=== PATIENT | female | born 1995 | race African-American/Black ===

== ENCOUNTER 2022-03-20 09:58 | Emergency (ER) | payer MEDICAID, SELFPAY ==
--- NOTE | ~2022-03-20 | US_ITS ---
EXAMINATION: US_ABDRLQ_US DATE: 03/20/2022 12:56 INDICATION: Right lower quadrant abdominal pain. TECHNIQUE: Multiple ultrasound images of the abdomen were obtained. COMPARISON: None. FINDINGS: The appendix is not identified. Partially visualized are uterine fibroids. There is no ascites. IMPRESSION: 1. Appendix not identified. 2. Partially visualized uterine fibroids. Reviewed, dictated and finalized at location A. ASSOCIATE
[2022-03-20 10:10] VITALS: BP 132/79; PULSE 77; RESP 16; TEMP 36.9; O2SAT 96
[2022-03-20 10:55] LABS: Appearance Urine Clear (Clear); Bilirubin Urine 1+ (Negative); Blood Urine Negative (Negative); Color Urine Yellow (Yellow); Glucose Urine UA Negative (Negative); Ketones Urine 4+ mg/dL (Negative); Leukocyte Esterase Ur Negative LEU/UL (Negative); Nitrate Urine Negative (Negative); Protein Urine Trace mg/dL (Negative)
[2022-03-20 11:11] LABS: Bacteria Urine Trace /hpf; Mucus Urine Moderate /lpf; RBC Urine 0-2 /hpf (0-2); Squamous Epithelial Cell Urine Moderate /hpf (Few); WBC Urine 0-3 /hpf
[2022-03-20 11:15] LABS: Add Urine Microscopic? YES
[2022-03-20] MEDS: SODIUM CHLORIDE 0.9% IV 1,000 ML 999 ML IV CONT (11:15)
[2022-03-20 11:21] LABS: Basophils Absolute Auto 0.1 K/mm3 (0.0-0.1); Basophils Percent Auto 0.5 % (0.2-1.2); Eosinophils Percent Auto 0.2 % (0-4.4); Hematocrit 45.6 % (37.0-47.0); Hemoglobin 14.4 g/dL (12.0-15.0); Immature Granulocyte Absolute 0.07 K/mm3 (0.00-0.031); Immature Granulocyte Percent A 0.5 % (0-0.5); Lymphocytes Absolute Auto 2.95 K/mm3 (0.9-3.2); Lymphocytes Percent Auto 22.5 % (18.3-44.2); Mean Corpuscular HGB Conc 31.6 g/dl (32-36); Mean Corpuscular Hemoglobin 27.6 pg (26-34); Mean Corpuscular Volume 87.5 fl (80-100); Mean Platelet Volume 9.5 fl (7.4-10.4); Monocytes Absolute Auto 0.8 K/mm3 (0.1-0.6); Monocytes Percent Auto 6.3 % (2.6-8.5); Neutrophils Absolute Auto 9.2 K/mm3 (1.3-6.7); Platelet Count Result 352 k/mm3 (150-375); Red Blood Count 5.21 M/mm3 (4.2-5.4); Red Cell Distribution Width 13.2 % (11.5-14.5); White Blood Count 13.1 K/mm3 (4.5-10.0)
[2022-03-20 11:36] LABS: Alanine Aminotransferase 18 U/L (6-35); Albumin Level 4.8 g/dL (3.5-5.1); Alkaline Phosphatase 81 U/L (38-126); Anion Gap 15 mmol/L (8-16); Aspartate Amino Transferase 24 U/L (14-36); Bilirubin,Total 0.6 mg/dL (0.2-1.3); Blood Urea Nitrogen 5 mg/dL (7-17); Calcium 8.9 mg/dL (8.4-10.2); Carbon Dioxide 20 mmol/L (22-30); Chloride 102 mmol/L (98-107); Estimated CRCL calculation 154 ml/min; Estimated Glomerular Filt Rate > 60; Glucose 91 mg/dL (65-110); Lipase 51 U/L (23-300); Sodium 137 mmol/L (137-145)
--- NOTE | 2022-03-20 12:11 | ED.ABDPAIN ---
HPI - Abdominal Pain General Chief Complaint: Abdominal Pain Stated Complaint: pelvic pain with back pain - hx fibroid tumor Time Seen by Provider: 03/20/22 10:13 History of Present Illness HPI narrative: 27-year-old female presents emergency room with a history of esophageal tear sudden onset of nausea vomiting that began last night. Patient states 2 weeks ago she was seen at her [facility], Dr. Renteria, for right lower quadrant pain. Ultrasound was obtained patient was found to have a uterine fibroid. Patient states last night she began experiencing multiple episodes of nonbilious nonbloody vomiting. Unknown last menstrual period. Related Data Home Medications Medication Instructions Recorded Confirmed No Home Medications 03/20/22 03/20/22 Allergies Allergy/AdvReac Type Severity Reaction Status Date / Time No Known Allergies Allergy Verified 03/20/22 10:21 Review of Systems Review of Systems: CONSTITUTIONAL: Denies fever, chills, or sweats. EYES: Denies visual changes, redness, or discharge. ENT: Denies rhinorrhea, congestion, sore throat, or otalgia. CARDIOVASCULAR: Denies chest pain, palpitations, or edema. RESPIRATORY: Denies cough or dyspnea. GASTROINTESTINAL: Reports right lower quadrant pain, nausea, vomiting GENITOURINARY: Denies dysuria or hematuria. SKIN: Denies rash or itching. MUSCULOSKELETAL: Denies back pain, joint pain, or myalgia. NEUROLOGIC: Denies headache, numbness, dizziness, or weakness. PSYCHIATRIC: Denies anxiety or depression. Exam Narrative: GENERAL: Well-appearing, well-nourished, no physical limitations, and in no acute distress. HEAD: Normocephalic, atraumatic. EYES: Conjunctivae normal, PERRLA and EOMI. CHEST: Clear to auscultation. No respiratory distress. No wheezes rales or rhonchi. HEART: Regular rate and rhythm. No murmur heard. Normal peripheral pulses. ABDOMEN: Soft, right lower quadrant tenderness, nondistended, normal active bowel sounds. Negative psoas, negative obturator, negative heel strike BACK: No CVA tenderness; No cervical/thoracic/lumbar tenderness, step-offs, bony abnormality; FROM EXTREMITIES: Normal range of motion. No edema. No clubbing or cyanosis SKIN: Warm, dry, no rash. No noted wounds NEURO: No focal deficits. Alert and oriented x3. MAEW. CN's II-XI intact bilaterally, normal gait PSYCH: Cooperative. Normal mood and affect. Course Vital Signs Vital signs: Vital Signs Temperature 36.9 C 03/20/22 10:10 Pulse Rate 77 03/20/22 10:10 Respiratory Rate 16 03/20/22 10:10 Blood Pressure 132/79 03/20/22 10:10 Pulse Oximetry 96 03/20/22 10:10 Oxygen Delivery Room Air 03/20/22 10:10 Temperature 36.9 C 03/20/22 10:10 Pulse Rate 77 03/20/22 10:10 Respiratory Rate 16 03/20/22 10:10 Blood Pressure 132/79 03/20/22 10:10 Pulse Oximetry 96 03/20/22 10:10 Oxygen Delivery Room Air 03/20/22 10:10 MDM - Abdominal Pain Lab Data Result diagrams: 03/20/22 11:15 03/20/22 11:15 Labs: Lab Results 03/20/22 03/20/22 03/20/22 Range/Units 10:48 11:15 11:15 WBC 13.1 H (4.5-10.0) K/mm3 RBC 5.21 (4.2-5.4) M/mm3 Hgb 14.4 (12.0-15.0) g/dL Hct 45.6 (37.0-47.0) % MCV 87.5 (80-100) fl MCH 27.6 (26-34) pg MCHC 31.6 L (32-36) g/dl RDW 13.2 (11.5-14.5) % Plt Count 352 (150-375) k/mm3 MPV 9.5 (7.4-10.4) fl Immature Gran % (Auto) 0.5 (0-0.5) % Neut % (Auto) 70.0 (45.5-73.1) % Lymph % (Auto) 22.5 (18.3-44.2) % [place] % (Auto) 6.3 (2.6-8.5) % Eos % (Auto) 0.2 (0-4.4) % Baso % (Auto) 0.5 (0.2-1.2) % Lymph # (Auto) 2.95 (0.9-3.2) K/mm3 [place] # (Auto) 0.8 H (0.1-0.6) K/mm3 Eos # (Auto) 0.0 (0-0.3) K/mm3 Baso # (Auto) 0.1 (0.0-0.1) K/mm3 Abs Immat Gran (auto) 0.07 H (0.00-0.031) K/mm3 Absolute Neuts (auto) 9.2 H (1.3-6.7) K/mm3 Absolute Nucleated RBC 0.0 (0.0-0.012) K/mm3 Nucleated RBC % 0.0 (0.0-0.2
[2022-03-20] MEDS: diphenhydrAMINE HCl INJ 50 MG/ML VIAL 25 MG IV PUSH (13:43)
[2022-03-20] MEDS: METOCLOPRAMIDE HCL INJ 10 MG/2 ML VIAL IV PUSH (13:43)
[2022-03-20 14:41] VITALS: BP 132/79; PULSE 76; RESP 18; O2SAT 98
== END 2022-03-20 14:57 | disposition home or self-care (01) ==
PROVIDERS: Emergency Provider Nurse Practitioner Family
DX: O21.0 Mild hyperemesis gravidarum (principal); Z3A.00 Weeks of gestation of pregnancy not specified
CPT/HCPCS: 36415; 76705; 80053; 81001; 83690; 84702; 85025; 96361; 96374; 96375; 99284; J1200; J2765; J7030

== ENCOUNTER 2022-03-21 10:37 | Outpatient (CLI) | payer MEDICAID, SELFPAY | END 2022-03-21 10:38 | disposition home or self-care (01) | PROVIDERS: Visit Provider Obstetrics & Gynecology | DX: N91.2 Amenorrhea, unspecified (principal); Z36.89 Encounter for other specified antenatal screening; O36.0130 Maternal care for anti-D [Rh] antibodies, third trimester, not applicable or unspecified | CPT/HCPCS: 36415; 84702; 85461; 86850; 86900; 86901 ==

== ENCOUNTER 2022-03-28 08:11 | Emergency (ER) | payer MEDICAID, SELFPAY ==
[2022-03-28 08:32] VITALS: BP 147/89; PULSE 90; RESP 19; TEMP 37.2; O2SAT 99
--- NOTE | 2022-03-28 08:40 | ED.NAVMDI ---
HPI - Nausea/Vomiting/Diarrhea General Chief complaint: Nausea/Vomiting/Diarrhea Stated complaint: vomiting Time Seen by Provider: 03/28/22 08:39 Source: patient Mode of arrival: ambulatory Limitations: no limitations History of Present Illness HPI Narrative: 27 years old -[place] female 1 para 0 0, currently is 8 weeks been having nausea and frequent vomiting since the beginning of her . She denies any fever, chills, nausea, vomiting. Related Data Home Medications Medication Instructions Recorded Confirmed No Home Medications 03/20/22 03/20/22 Allergies Allergy/AdvReac Type Severity Reaction Status Date / Time No Known Allergies Allergy Verified 03/28/22 08:32 Review of Systems Review of Systems: All systems reviewed & are unremarkable except as noted in HPI and below Exam Narrative: General appearance: Well-developed, well-nourished Skin: Normal color Head: Normocephalic, nontraumatic Eyes: Clear conjunctiva ENT: Oropharynx normal, ears normal, nose normal Neck: Supple, nontender Chest and respiratory: Airway patent, no respiratory distress, no accessory muscle use Heart: Regular rate/rhythm Abdomen: Soft, nontender, no organomegaly, quiet bowel sounds Vascular: Normal peripheral pulses, normal capillary refill. Musculoskeletal: Normal range of motion, nontender back Neurologic: Alert and oriented ?3, ACCOUNT EXECUTIVE is normal as tested, no gross motor deficit Course Vital Signs Vital signs: Vital Signs Temperature 37.2 C 03/28/22 08:32 Pulse Rate 90 03/28/22 08:32 Respiratory Rate 19 03/28/22 08:32 Blood Pressure 147/89 H 03/28/22 08:32 Pulse Oximetry 99 03/28/22 08:32 Temperature 37.2 C 03/28/22 08:32 Pulse Rate 90 03/28/22 08:32 Respiratory Rate 19 03/28/22 08:32 Blood Pressure 147/89 H 03/28/22 08:32 Pulse Oximetry 99 03/28/22 08:32 MDM - Nausea/Vomiting/Diarrhea Differential Diagnosis Differential diagnosis: Likely dehydration and other (Hyperemesis gravidarum, urinary tract infection) Lab Data Result diagrams: 03/28/22 08:39 03/28/22 09:00 Labs: Lab Results 03/28/22 03/28/22 03/28/22 Range/Units 08:39 09:00 09:10 WBC 13.9 H (4.5-10.0) K/mm3 RBC 5.21 (4.2-5.4) M/mm3 Hgb 14.6 (12.0-15.0) g/dL Hct 45.7 (37.0-47.0) % MCV 87.7 (80-100) fl MCH 28.0 (26-34) pg MCHC 31.9 L (32-36) g/dl RDW 13.0 (11.5-14.5) % Plt Count 398 H (150-375) k/mm3 MPV 9.8 (7.4-10.4) fl Immature Gran % (Auto) 0.5 (0-0.5) % Neut % (Auto) 79.3 H (45.5-73.1) % Lymph % (Auto) 14.3 L (18.3-44.2) % [place] % (Auto) 5.4 (2.6-8.5) % Eos % (Auto) 0.0 (0-4.4) % Baso % (Auto) 0.5 (0.2-1.2) % Lymph # (Auto) 1.99 (0.9-3.2) K/mm3 [place] # (Auto) 0.8 H (0.1-0.6) K/mm3 Eos # (Auto) 0.0 (0-0.3) K/mm3 Baso # (Auto) 0.1 (0.0-0.1) K/mm3 Abs Immat Gran (auto) 0.07 H (0.00-0.031) K/mm3 Absolute Neuts (auto) 11.0 H (1.3-6.7) K/mm3 Absolute Nucleated RBC 0.0 (0.0-0.012) K/mm3 Nucleated RBC % 0.0 (0.0-0.2) % Sodium 140 (137-145) mmol/L Potassium 3.1 L (3.4-5.0) mmol/L Chloride 100 (98-107) mmol/L Carbon Dioxide 24 (22-30) mmol/L Anion Gap 16 (8-16) mmol/L BUN 5 L (7-17) mg/dL Creatinine 0.50 L (0.7-1.0) mg/dL Estim Creat Clear Calc 183 ml/min Estimated GFR > 60 (59 - ) Glucose 109 (65-110) mg/dL Calcium 9.3 (8.4-10.2) mg/dL Total Bilirubin 0.4 (0.2-1.3) mg/dL AST 23 (14-36) U/L ALT 22 (6-35) U/L Alkaline Phosphatase 88 (38-126) U/L Total Protein 9.0 H (6.3-8.2) g/
[2022-03-28 09:00] LABS: Basophils Absolute Auto 0.1 K/mm3 (0.0-0.1); Basophils Percent Auto 0.5 % (0.2-1.2); Hematocrit 45.7 % (37.0-47.0); Hemoglobin 14.6 g/dL (12.0-15.0); Immature Granulocyte Absolute 0.07 K/mm3 (0.00-0.031); Immature Granulocyte Percent A 0.5 % (0-0.5); Lymphocytes Absolute Auto 1.99 K/mm3 (0.9-3.2); Lymphocytes Percent Auto 14.3 % (18.3-44.2); Mean Corpuscular HGB Conc 31.9 g/dl (32-36); Mean Corpuscular Volume 87.7 fl (80-100); Mean Platelet Volume 9.8 fl (7.4-10.4); Monocytes Absolute Auto 0.8 K/mm3 (0.1-0.6); Monocytes Percent Auto 5.4 % (2.6-8.5); Neutrophils Percent Auto 79.3 % (45.5-73.1); Platelet Count Result 398 k/mm3 (150-375); Red Blood Count 5.21 M/mm3 (4.2-5.4); White Blood Count 13.9 K/mm3 (4.5-10.0)
[2022-03-28] MEDS: ONDANSETRON INJ 4 MG/2 ML VIAL 8 MG IV PUSH (09:13)
[2022-03-28] MEDS: SODIUM CHLORIDE 0.9% IV 1,000 ML 999 ML IV CONT ×2 (09:13)
[2022-03-28 09:16] LABS: Alanine Aminotransferase 22 U/L (6-35); Albumin Level 4.6 g/dL (3.5-5.1); Alkaline Phosphatase 88 U/L (38-126); Anion Gap 16 mmol/L (8-16); Aspartate Amino Transferase 23 U/L (14-36); Bilirubin,Total 0.4 mg/dL (0.2-1.3); Blood Urea Nitrogen 5 mg/dL (7-17); Calcium 9.3 mg/dL (8.4-10.2); Carbon Dioxide 24 mmol/L (22-30); Chloride 100 mmol/L (98-107); Estimated CRCL calculation 183 ml/min; Estimated Glomerular Filt Rate > 60; Glucose 109 mg/dL (65-110); Lipase 60 U/L (23-300); Potassium 3.1 mmol/L (3.4-5.0); Sodium 140 mmol/L (137-145)
[2022-03-28 09:19] LABS: Appearance Urine Slightly Cloudy (Clear); Bilirubin Urine 2+ (Negative); Blood Urine Negative (Negative); Color Urine Yellow (Yellow); Glucose Urine UA Negative (Negative); Ketones Urine 4+ mg/dL (Negative); Leukocyte Esterase Ur Negative LEU/UL (Negative); Nitrate Urine Negative (Negative); Protein Urine 2+ mg/dL (Negative); Specific Grav Ur 1.025 (1.001-1.035)
[2022-03-28 09:25] LABS: Bacteria Urine 1+ /hpf; Mucus Urine Heavy /lpf; RBC Urine 0-2 /hpf (0-2); Squamous Epithelial Cell Urine Moderate /hpf (Few); WBC Urine 0-3 /hpf
[2022-03-28 09:29] LABS: Add Urine Microscopic? YES
[2022-03-28] MEDS: BELLADONNA ALK/PHENOB ELIX 10 ML, MAG HYDROX/ALUMINUM HYD/SIMETH 30 ML, LIDOCAINE HCL 2... PO (10:36)
[2022-03-28 10:37] VITALS: BP 118/57; PULSE 85; RESP 16; O2SAT 100
== END 2022-03-28 10:45 | disposition home or self-care (01) ==
PROVIDERS: Emergency Provider Emergency Medicine
DX: O21.1 Hyperemesis gravidarum with metabolic disturbance (principal); Z3A.08 8 weeks gestation of pregnancy
CPT/HCPCS: 36415; 80053; 81001; 81025; 83690; 85025; 96361; 96374; 99284; A9270; J2405; J7030

== ENCOUNTER 2022-10-30 10:12 | Observation (INO) | payer MEDICAID, SELFPAY ==
[2022-10-30 10:25] VITALS: BP 129/67; PULSE 80
[2022-10-30 10:32] VITALS: BP 97/78; PULSE 85; RESP 18; TEMP 36.1
[2022-10-30 11:40] VITALS: BMI 48.6
--- NOTE | 2022-10-30 11:41 | OBADM ---
This patient, Juan Chun, admitted to the OB room 117 for observation for extended monitoring. Patient/family oriented to hospital policies and general routines including ID bracelet, bed and alarms, visiting hours, pain management, procedures, bathroom and other care routines, personal items, smoking policy, room service/diet, and visiting hours. Patient/Family are encouraged to report perceived risks to care and to ask questions if they do not understand what they are told or what they should do.
--- NOTE | 2022-10-30 12:54 | PC.NURSE ---
Dr. Lay informed of reactive FHT's with 1 possible 10-15 sec variable down to 120- FHR signal was not connected.
--- NOTE | 2022-10-30 12:55 | PC.NURSE ---
OK to discharge to home.
--- NOTE | 2022-11-09 06:53 | PM.OBTRLD ---
OB - Triage/Final Diagnosis Visit Information Comments/Additional reasons for admission: I have assessed the risk for this patient, Juan Chun, and determined that she would benefit from observation care. Final Diagnosis (1) Non-reassuring electronic monitoring tracing: Code(s): O36.8390 - Maternal care for abnormalities of the heart rate or rhythm, unspecified trimester, not applicable or unspecified Status: Acute
== END 2022-10-30 13:14 | disposition home or self-care (01) ==
PROVIDERS: Admitting Provider Obstetrics & Gynecology; Visit Provider Obstetrics & Gynecology
DX: O36.8330 Maternal care for abnormalities of the fetal heart rate or rhythm, third trimester, not applicable or unspecified (principal); Z3A.39 39 weeks gestation of pregnancy
CPT/HCPCS: G0378; G0379

== ENCOUNTER 2022-11-02 00:23 | Inpatient (IN) | payer MEDICAID, SELFPAY ==
[2022-11-02] VITALS (134 sets, daily range): BP systolic 69–161; BP diastolic 41–119; PULSE 64–160; RESP 15–18; TEMP 36.3–37.1; O2SAT 82–100; BMI 49.1
[2022-11-02 01:07] LABS: Hematocrit 32.3 % (37.0-47.0); Mean Corpuscular Hemoglobin 24.5 pg (26-34); Mean Corpuscular Volume 79.2 fl (80-100); Red Blood Count 4.08 M/mm3 (4.2-5.4)
[2022-11-02] MEDS: LACTATED RINGERS 1,000 ML 125 ML IV CONT ×3 (01:07→13:28)
[2022-11-02 01:08] LABS: Basophils Percent Auto 0.3 % (0.2-1.2); Eosinophils Absolute Auto 0.1 K/mm3 (0-0.3); Eosinophils Percent Auto 0.5 % (0-4.4); Immature Granulocyte Percent A 0.9 % (0-0.5); Lymphocytes Absolute Auto 2.44 K/mm3 (0.9-3.2); Lymphocytes Percent Auto 22.2 % (18.3-44.2); Mean Platelet Volume 9.7 fl (7.4-10.4); Monocytes Absolute Auto 0.9 K/mm3 (0.1-0.6); Monocytes Percent Auto 8.4 % (2.6-8.5); Neutrophils Absolute Auto 7.5 K/mm3 (1.3-6.7); Neutrophils Percent Auto 67.7 % (45.5-73.1); Platelet Count Result 343 k/mm3 (150-375)
[2022-11-02] MEDS: AMPICILLIN 2 GM/NS 100 ML 2 GM/100 ML BAG IVPB (01:08)
--- NOTE | 2022-11-02 03:27 | WPDANESEPPF ---
Anes - Initial Pre Proc Eval Procedure: Labor epidural Date/Time: 11/02/22 03:27 Surgeon: Kimberly Lay MD Pre Op Diagnosis: Labor pain Pre Op Diagnosis: SROM Patient Data Age: 27 Gender: F Height: 1.65 m Weight: 134 kg Last Vital Signs Pulse 77 11/02/22 03:02 BP 120/41 L 11/02/22 03:02 Allergies Allergy/AdvReac Type Severity Reaction Status Date / Time No Known Allergies Allergy Verified 03/28/22 08:32 Home Medications Medication Instructions Recorded Confirmed Type ferrous sulfate 325 mg (65 mg 325 mg PO DAILY 10/11/22 10/30/22 History iron) tablet prenat.vits,andre,btl-macm-uivsy 1 tablet PO DAILY 10/11/22 10/30/22 History Laboratory Tests 11/02/22 01:02 WBC 11.0 H K/mm3 (4.5-10.0) RBC 4.08 L M/mm3 (4.2-5.4) Hgb 10.0 L D g/dL (12.0-15.0) Hct 32.3 L % (37.0-47.0) MCV 79.2 L fl (80-100) MCH 24.5 L pg (26-34) MCHC 31.0 L g/dl (32-36) RDW 16.0 H % (11.5-14.5) Plt Count 343 k/mm3 (150-375) MPV 9.7 fl (7.4-10.4) Immature Gran % (Auto) 0.9 H % (0-0.5) Neut % (Auto) 67.7 % (45.5-73.1) Lymph % (Auto) 22.2 % (18.3-44.2) [place] % (Auto) 8.4 % (2.6-8.5) Eos % (Auto) 0.5 % (0-4.4) Baso % (Auto) 0.3 % (0.2-1.2) Lymph # (Auto) 2.44 K/mm3 (0.9-3.2) [place] # (Auto) 0.9 H K/mm3 (0.1-0.6) Eos # (Auto) 0.1 K/mm3 (0-0.3) Baso # (Auto) 0.0 K/mm3 (0.0-0.1) Abs Immat Gran (auto) 0.10 H K/mm3 (0.00-0.031) Absolute Neuts (auto) 7.5 H K/mm3 (1.3-6.7) Absolute Nucleated RBC 0.0 K/mm3 (0.0-0.012) Nucleated RBC % 0.0 % (0.0-0.2) RPR Pending Blood Type B Positive Antibody Screen Negative Patient hx anesthesia problems: none Family hx anesthesia problems: none Results Review: All pre-operative results and documents have been reviewed as part of the pre-operative evaluation. PMFSH Family History Family History Mother Hypertension Social History Social History Substance use: never Spiritual care concerns: No Anes - Eval Final PreProcedure Day of Procedure 11/02/22 03:27 Patient weight: morbidly obese ASA classification: III Anesthesia type and monitoring: regional epidural and standard monitoring Results Review: All pre-operative results and documents have been reviewed as part of the pre-operative evaluation. Informed Consent: The patient's anesthetic plan and its attendant risks and benefits were discussed with the patient/family/POA. Questions were solicited and answers provided to the satisfaction of the patient/family/POA.
[2022-11-02] MEDS: AMPICILLIN 1 GM/NS 50 ML 1 GM/50 ML BAG IVPB ×3 (05:25→14:34)
--- NOTE | 2022-11-02 05:31 | WPDOBADMIT ---
Obstetrics - Admit Note Admission Note: record reviewed. No pertinent additions to the history and/or any subsequent changes in the physical findings that are not consistent with the expected course of the were found. Pt presented after SROM at home. GBS +, anticipate vaginal delivery Additions to the history and/or subsequent changes in the physical findings follow. None.
--- NOTE | 2022-11-02 06:48 | LDADM ---
This patient, Juan Chun, was admitted to Labor/Delivery/Recovery 104 on 11/02/22 at 00:23. Plans for labor, pain management and were discussed with patient. Patient/family oriented to hospital policies and general routines including ID bracelet, bed and alarms, visiting hours, pain management, procedures, bathroom and other care routines, personal items, smoking policy, room service/diet and guest tray routines, infant security routines, and visiting hours. Patient/Family are encouraged to report perceived risks to care and to ask questions if they do not understand what they are told or what they should do. See OBIX for further documentation.
[2022-11-02] MEDS: OXYTOCIN 30 UNITS/NS 500 ML 30 UNITS/500 ML BAG 6 UNITS IV CONT (09:25)
[2022-11-02] MEDS: fentaNYL CITRATE INJ (*CRX) 100 MCG/2 ML VIAL 50 MCG IV PUSH (12:02)
--- NOTE | 2022-11-02 17:13 | PM.OBPRVD ---
OB - Delivery Note Procedure Delivery date: 11/02/22 Procedure: Induction method: None Delivery augmentation: Pitocin Delivery monitor: Internal FHT and Internal Uterine Route of delivery: Laceration Description: Superficial Specimen: Yes Quantitative Blood Loss (ml): 80 Anesthesia type: Epidural Disposition: Floor [place] Baby Date of : 11/02/22 Time of : 16:53 Weeks of gestation at delivery: 38 Infant gender: Female Weight (pounds): 7 Weight (ounces): 12 presentation: vertex position: Left Occiput Anterior Placenta delivery description: Manual Removal and Uterine Exploration Cord Vessel Description: 3 Vessels, Clamped/Cut and Delayed Cord Clamping score one minute: 8 score five minutes: 8 Narrative: mother and baby skin to skin in stable condition
[2022-11-02] MEDS: OXYTOCIN 30 UNITS/NS 500 ML 30 UNITS/500 ML BAG 125 UNITS IV CONT (17:50)
[2022-11-02] MEDS: WITCH HAZEL 40 PADS 1 PAD TOPICAL (19:19)
[2022-11-02] MEDS: BENZOCAINE 20% AER SPR (*SP) 56 GM CAN 1 SPRAY TOPICAL (19:19)
--- NOTE | 2022-11-02 19:52 | PC.NURSE ---
Patient transferred to post room #292 via wheelchair at 1952. Family present. Oriented to unit, room, information board, rooming in, admission packet and security measures. Patient verbalizes understanding.
[2022-11-03 00:30] VITALS: BP 110/71; PULSE 79; RESP 18; TEMP 36.7; O2SAT 99
[2022-11-03 03:41] LABS: Hemoglobin 9.1 g/dL (12.0-15.0)
[2022-11-03] MEDS: IBUPROFEN 600 MG TABLET PO ×3 (03:41→17:11)
--- NOTE | 2022-11-03 07:00 | PC.NURSE ---
PT introductions made and plan of care discussed per post , pain management, bottle feeding, daily care activities. PT and FOB both recipients of such instructions and no barriers to learning identified at this time. PT received such instructions per one to one discussion, mom baby care guide and demonstrations this shift. PT verbalized understanding of such care.
--- NOTE | 2022-11-03 08:05 | PM.OBPNVD ---
OB - PN: Subj Subjective Date/time seen: 11/03/22 08:05 s/p vaginal delivery day 1 Bp's labile, check labs, denies ivory, visual changes, epigastric pain doing well baby doing well OB - PN: Obj Data Labs 11/03/22 03:25 Labs: Laboratory Results - last 24 hr 11/03/22 03:25 Hgb 9.1 L Hct 29.0 L OB - PN A/P Plan day: 1 Plan: routine care Comments: continue routine bp checks check labs Time Spent With Patient Time: Total time spent is greater than 50% in coordination of care (as documented) at patient's floor/unit and/or counseling patient: Review of Systems Review of Systems: All systems reviewed & are unremarkable except as noted in HPI and below Exam Const: General: cooperative, healthy appearing and comfortable Chest: Chest palpation & inspection: normal inspection of the chest Resp: Effort & Inspection: normal respiratory effort and able to speak in complete sentences Cardio: Rate: regular rate Rhythm: regular rhythm GI: Other: soft : Other: deferred Skin: General skin exam: normal color and no rashes or lesions noted Neuro: General: patient oriented x3 Extrem: Right lower extremity: edema Details: non-pitting Left lower extremity: edema Details: non-pitting
--- NOTE | 2022-11-03 08:22 | WPDANLDPN2 ---
Anes-Prog Note L&D Date/Time: 11/03/22 08:22 Comfortable throughout: labor and delivery Neuraxial method: epidural Epidural/Spinal procedure site: clean & non-tender Neuro status: Neuro function grossly intact. Cardiovascular status: normal Respiratory status: normal Airway patency: baseline Mental status: baseline Post-Op hydration status: normal Vital Signs: Last Vital Signs Temp 98.0 F 11/03/22 00:30 Pulse 79 11/03/22 00:30 Resp 18 11/03/22 00:30 BP 110/71 11/03/22 00:30 Pulse Ox 99 11/03/22 00:30 O2 Del Method Room Air 11/02/22 20:30 Pain score (VAS): 0 I/O: Intake & Output 11/02/22 11/03/22 11/03/22 23:59 07:59 15:59 Output Total 172 Balance -172 Post-procedural complaints: none Patient feedback: Patient satisfied with anesthetic care.
[2022-11-03] MEDS: ACETAMINOPHEN 325 MG TABLET 650 MG PO ×2 (09:27→17:11)
[2022-11-03] MEDS: DOCUSATE SODIUM 100 MG CAPSULE PO ×2 (09:27→17:10)
[2022-11-03] MEDS: POLYSACCHARIDE IRON COMPLEX 150 MG CAPSULE PO ×2 (09:28→17:11)
[2022-11-03] MEDS: MULTIVIT/MIN/PREN/FOL AC/IRON TABLET 1 TAB PO (09:29)
[2022-11-03 09:30] VITALS: BP 123/64; PULSE 87; RESP 18; TEMP 36.7; O2SAT 100
[2022-11-03 13:00] VITALS: BP 132/69; PULSE 83; RESP 16; TEMP 37; O2SAT 100
[2022-11-03 13:24] LABS: Basophils Percent Auto 0.3 % (0.2-1.2); Eosinophils Percent Auto 0.2 % (0-4.4); Hematocrit 27.8 % (37.0-47.0); Hemoglobin 8.5 g/dL (12.0-15.0); Immature Granulocyte Absolute 0.07 K/mm3 (0.00-0.031); Immature Granulocyte Percent A 0.5 % (0-0.5); Lymphocytes Absolute Auto 2.64 K/mm3 (0.9-3.2); Lymphocytes Percent Auto 20.4 % (18.3-44.2); Mean Corpuscular HGB Conc 30.6 g/dl (32-36); Mean Corpuscular Hemoglobin 24.6 pg (26-34); Mean Corpuscular Volume 80.3 fl (80-100); Mean Platelet Volume 9.8 fl (7.4-10.4); Monocytes Absolute Auto 0.9 K/mm3 (0.1-0.6); Monocytes Percent Auto 6.8 % (2.6-8.5); Neutrophils Absolute Auto 9.3 K/mm3 (1.3-6.7); Neutrophils Percent Auto 71.8 % (45.5-73.1); Platelet Count Result 293 k/mm3 (150-375); Red Blood Count 3.46 M/mm3 (4.2-5.4); Red Cell Distribution Width 16.5 % (11.5-14.5); White Blood Count 12.9 K/mm3 (4.5-10.0)
[2022-11-03 13:34] LABS: Alanine Aminotransferase 17 U/L (6-35); Albumin Level 2.6 g/dL (3.5-5.1); Alkaline Phosphatase 136 U/L (38-126); Anion Gap 4 mmol/L (8-16); Aspartate Amino Transferase 19 U/L (14-36); Bilirubin,Total 0.2 mg/dL (0.2-1.3); Blood Urea Nitrogen 9 mg/dL (7-17); Calcium 8.2 mg/dL (8.4-10.2); Carbon Dioxide 23 mmol/L (22-30); Chloride 110 mmol/L (98-107); Estimated CRCL calculation 145 ml/min; Estimated Glomerular Filt Rate > 60; Glucose 103 mg/dL (65-110); Potassium 3.6 mmol/L (3.4-5.0); Sodium 137 mmol/L (137-145); Uric Acid 5.6 mg/dL (2.5-7.5)
[2022-11-03 21:38] VITALS: BP 138/84; PULSE 82; RESP 18; TEMP 36.8; O2SAT 100
[2022-11-04 07:35] VITALS: BP 111/59; PULSE 72; RESP 16; TEMP 37.3; O2SAT 100
[2022-11-04 08:00] VITALS: PULSE 72; RESP 16; O2SAT 100
[2022-11-04 08:05] LABS: Rapid Plasma Reagin Non-Reactive (NonReactive)
[2022-11-04] MEDS: MULTIVIT/MIN/PREN/FOL AC/IRON TABLET 1 TAB PO (08:51)
[2022-11-04] MEDS: IBUPROFEN 600 MG TABLET PO (08:51)
[2022-11-04] MEDS: DOCUSATE SODIUM 100 MG CAPSULE PO (08:51)
[2022-11-04] MEDS: POLYSACCHARIDE IRON COMPLEX 150 MG CAPSULE PO (08:51)
[2022-11-04] MEDS: ACETAMINOPHEN 325 MG TABLET 650 MG PO (08:52)
--- NOTE | 2022-11-04 08:52 | P.DS_ITS ---
DS: Admitting Diagnosis Discharge Date 11/01/25 Admitting Diagnosis term OB - DS: Summary OB Procedures : None OB Procedures Intrapartum: Spontaneous Vag Delivery OB Procedures: : None Time Spent with Patient Time attestation: Total time spent providing and/or coordinating discharge services: DS: Data Data Completed and Pending Pending studies at discharge: Pending at discharge 11/02/22 17:15 Surgical [PTH] Routine Labs on day of discharge: Labs from last 24 hours 11/03/22 11/03/22 11/02/22 13:09 13:07 01:02 WBC 12.9 H RBC 3.46 L Hgb 8.5 L Hct 27.8 L MCV 80.3 MCH 24.6 L MCHC 30.6 L RDW 16.5 H Plt Count 293 MPV 9.8 Immature Gran % (Auto) 0.5 Neut % (Auto) 71.8 Lymph % (Auto) 20.4 [place] % (Auto) 6.8 Eos % (Auto) 0.2 Baso % (Auto) 0.3 Lymph # (Auto) 2.64 [place] # (Auto) 0.9 H Eos # (Auto) 0.0 Baso # (Auto) 0.0 Abs Immat Gran (auto) 0.07 H Absolute Neuts (auto) 9.3 H Absolute Nucleated RBC 0.0 Nucleated RBC % 0.0 Sodium 137 Potassium 3.6 Chloride 110 H Carbon Dioxide 23 Anion Gap 4 L BUN 9 Creatinine 0.70 Estim Creat Clear Calc 145 Estimated GFR > 60 Glucose 103 Uric Acid 5.6 Calcium 8.2 L Total Bilirubin 0.2 AST 19 ALT 17 Alkaline Phosphatase 136 H Total Protein 6.0 L Albumin 2.6 L RPR Non-reactive Discharge Plan Discharge Discharging Clinician: Juliana Sandoval Patient Disposition: Home, Self-Care Activity: pelvic rest Diet: regular Patient Instructions: Antibiotic Form Stand Alone Forms: General Discharge Information Follow-up/Referrals: Juliana Sandoval MD [Physician] - Discharge Medications: Continued ferrous sulfate 325 mg (65 mg iron) Tablet 325 mg PO DAILY prenat.vits,ander,hhm-pvht-jkivn Tablet 1 tablet PO DAILY Date of admission: 11/02/22 00:23 Primary Care Provider: PHYSICIAN,STREET OPENINGS INSPECTOR Admitting Provider: Kimberly Lay Attending physician on admission: Kimberly Lay Condition: Stable
--- NOTE | 2022-11-04 08:52 | PM.OBPNVD ---
OB - PN: Subj Subjective Date/time seen: 11/04/22 08:52 Patient comments: no complaints, pain well controlled and tolerating diet OB - PN: Obj Data Labs 11/03/22 13:09 11/03/22 13:07 Labs: Laboratory Results - last 24 hr 11/02/22 11/03/22 11/03/22 01:02 13:07 13:09 WBC 12.9 H RBC 3.46 L Hgb 8.5 L Hct 27.8 L MCV 80.3 MCH 24.6 L MCHC 30.6 L RDW 16.5 H Plt Count 293 MPV 9.8 Immature Gran % (Auto) 0.5 Neut % (Auto) 71.8 Lymph % (Auto) 20.4 [place] % (Auto) 6.8 Eos % (Auto) 0.2 Baso % (Auto) 0.3 Lymph # (Auto) 2.64 [place] # (Auto) 0.9 H Eos # (Auto) 0.0 Baso # (Auto) 0.0 Abs Immat Gran (auto) 0.07 H Absolute Neuts (auto) 9.3 H Absolute Nucleated RBC 0.0 Nucleated RBC % 0.0 Sodium 137 Potassium 3.6 Chloride 110 H Carbon Dioxide 23 Anion Gap 4 L BUN 9 Creatinine 0.70 Estim Creat Clear Calc 145 Estimated GFR > 60 Glucose 103 Uric Acid 5.6 Calcium 8.2 L Total Bilirubin 0.2 AST 19 ALT 17 Alkaline Phosphatase 136 H Total Protein 6.0 L Albumin 2.6 L RPR Non-reactive OB - PN A/P Plan day: 2 Plan: routine care and discharge home Time Spent With Patient Time: Total time spent is greater than 50% in coordination of care (as documented) at patient's floor/unit and/or counseling patient: Exam Const: General: comfortable and no acute distress Resp: Effort & Inspection: normal respiratory effort Auscultation: no rales, no rhonchi and no wheezes Cardio: Rate: regular rate Heart sounds: no click, no murmurs and no rubs GI: GI Palp: Yes Soft to palpation and No Tenderness to palpation present (GI) Auscultation: normal bowel sounds Extrem: General: normal to inspection, no pedal edema and no calf tenderness
== END 2022-11-04 11:56 | disposition home or self-care (01) | DRG 560 ==
LOC: ANHLDR 01:12 → ANHOB2 11-04 08:53 → ANHLDR 11-05 10:46 → ANHOB2 11-05 10:46
PROVIDERS: Advanced Practice Midwife; Admitting Provider Obstetrics & Gynecology; Visit Provider Obstetrics & Gynecology
DX: O99.824 Streptococcus B carrier state complicating childbirth (principal); O69.89X0 Labor and delivery complicated by other cord complications, not applicable or unspecified; Z37.0 Single live birth; Z3A.39 39 weeks gestation of pregnancy
CPT/HCPCS: 36415; 80053; 84550; 85014; 85018; 85025; 86592; 86850; 86900; 86901; 88307; A9270; J0290; J2590; J2795; J3010; J7120